=== PATIENT | female | born 1970 | race Caucasian/White ===

== ENCOUNTER 2016-12-08 01:21 | Emergency (ER) | payer MEDICARE ==
[~2016-12-08 01:21] MED LIST: ALLERGY10 M3 PO; AZITHROMYCIN250 M1 PO; BENADRYL25 MG PO; CYCLOBENZAPRINE10 M1 PO; FLEXERIL10 MG PO; IBUPROFEN600 M1 PO; NORCO 5/3251 TA1 NG; PRILOSEC20 M1 PO
== END 2016-12-08 02:33 ==
LOC: EDMED 01:21
DX: S00.93XA Contusion of unspecified part of head, initial encounter (principal); K21.9 Gastro-esophageal reflux disease without esophagitis; H91.90 Unspecified hearing loss, unspecified ear; Z96.22 Myringotomy tube(s) status; Z87.891 Personal history of nicotine dependence; Y04.2XXA Assault by strike against or bumped into by another person, initial encounter; Y92.019 Unspecified place in single-family (private) house as the place of occurrence of the external cause; Y07.03 Male partner, perpetrator of maltreatment and neglect